=== PATIENT | male | born 1945 | race Caucasian/White ===

== ENCOUNTER 2019-11-09 09:02 | Observation (INO) ==
[2019-11-08 11:36] LABS: BASO# 0.11 X1000 (0.0-0.2); BASO% 1.5 % (0.0-0.8); EOS# 0.37 X1000 (0.0-0.7); EOS% 4.9 % (0.0-10.0); HEMATOCRIT 47.6 % (42.0-52.0); LYMPH# 1.82 X1000 (1.2-3.4); LYMPH% 24.2 % (20.5-51.1); MCH 29.1 PG (27-31); MCHC 33.6 g/dL (33-37); MCV 86.7 FL (81-99); MONO# 0.69 X1000 (0.11-0.59); MONO% 9.2 % (1.7-9.3); MPV 10.6 FL (7.4-10.4); NEUT# 4.53 X1000 (1.4-6.5); NEUT% 60.2 % (42.2-75.2); PLT 216 X1000 (130-400); RBC 5.49 XMIL (4.7-6.1); RDW 13.1 % (11.5-14.5); WBC 7.52 X1000 (4.8-10.8)
[2019-11-08 11:58] LABS: INR 1.02; PROTIME 13.5 Seconds (11.0-16.0)
[2019-11-08 11:59] LABS: PTT 32.7 Seconds (22.3-41.8)
[2019-11-08 12:24] LABS: AGAP 11; ALB/GLOB RATIO 1.3; ALBUMIN 4.1 g/dL (3.5-5.0); ALKALINE PHOSPHATASE 82 U/L (32-122); BUN 13 mg/dL (8-22); CALCIUM 9.6 mg/dL (8.8-10.2); CHLORIDE 101 mmol/L (98-107); COSMO 276; ESTIMATED GFR > 60; GLUCOSE 97 mg/dL (70-104); GOT 25 U/L (10-34); GPT 22 U/L (10-44); POTASSIUM 4.6 mmol/L (3.5-5.1); SODIUM 138 mmol/L (136-145); TCO2 26 mmol/L (25-35); TOTAL BILIRUBIN 0.44 mg/dL (0.20-1.00); TOTAL PROTEIN 7.3 g/dL (6.3-8.3)
[2019-11-09] MEDS ORDERED: NS 1,000 ML ONE (09:52)
[2019-11-09] MEDS ORDERED: HEPARIN 1000 UNITS/NS 2,000 UNIT/1,000 ML IV.SOLN ONE (12:43)
[2019-11-09] MEDS ORDERED: VERSED ONE (12:51)
[2019-11-09] MEDS ORDERED: DEMEROL ONE (12:51)
[2019-11-09] MEDS ORDERED: LOPRESSOR ONE (13:40)
[2019-11-09] MEDS ORDERED: TOPROL XL PO SCH (14:30)
[2019-11-09] MEDS ORDERED: ASPIRIN PO SCH (14:30)
--- NOTE | 2019-11-09 14:36 | CARDIAC CATH REPORT ---
DATE: 11/09/2019 PROCEDURES: 1. Left heart catheterization. 2. Selective bilateral coronary arteriography. 3. Left ventriculography. HISTORY: A 74-year-old male presenting with classical exertional angina pectoris to moderate effort and sometimes with little effort. He does have several risk factors for coronary heart disease. 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 Benefits, risks and complications were discussed. He understood and requested to proceed. 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 He received 1 mg of Versed and 25 mg of Demerol for sedation. The right antecubital fossa was prepped and draped in a sterile fashion, anesthetized with lidocaine 1%. A 5 Scottish sheath was inserted into the right brachial artery by following the modified Seldinger technique. Using a 5 Scottish Sones type 2 catheter, the left coronary artery was selectively opacified. Then the right coronary artery in several projections. Thereafter, the aortic valve negotiated and ventricular pressure was measured and left ventriculogram performed in 60 degree RENE projection and 30 degree DONAHUE projection by hand injection. At the completion of the case, he received 200 mcg of intraarterial nitroglycerin and the sheath was removed. Hemostasis was accomplished by hand compression. The patient tolerated the procedure well without complications. SUMMARY OF HEMODYNAMIC FINDINGS: Central aortic pressure is 148/86. LV pressure 172/11, post LV gram was 71/16, final central aortic pressure 181/72. SUMMARY OF THE ANGIOGRAPHIC FINDINGS: 1. Left main coronary artery: The vessel shows mild diffuse disease in the order of 10% to 15%. Left main divides into LAD and circumflex. 2. Left anterior descending coronary artery: The vessel shows diffuse coronary atherosclerosis proximally in the order of 20%, in the mid section in the order of 30% to 40%, more distally is very minimal. The LAD gives rise to diagonal vessels that appear to be free of any significant obstruction. They are small. 3. Circumflex: The circumflex coronary artery is nondominant. Gives rise to a high lateral branch that shows a proximal tubular plaque in the order of 50%. It is a small cardiac vessel. The main circumflex continues down gives to rise a bifurcating obtuse marginal vessel and a terminal small A-V branch. No critical lesion noted in the circumflex. 4. Right coronary artery: The right coronary artery is a dominant system. It does not give the conus branch nor the sinus sincere branch. It gives rise to an acute marginal vessel, proximally it shows diffuse disease in the order of 30% proximally and is very tortuous in its mid section. Then gives rise to a posterior descending branch which is normal and a posterolateral vessel. No critical stenosis is noted within the right coronary artery. LEFT VENTRICULOGRAM: Left ventricle shows hyperdynamic function, ejection fraction is 85% with no wall motion abnormality. No mitral regurgitation. SUMMARY: This study shows: 1. Diffuse coronary artery disease nonobstructive in the order of 30% to 40% in the mid LAD as well as in the right coronary artery. 2. Hyperdynamic left ventricle, ejection fraction of 85%. 3. Normal LVEDP. 4. Hypertension. 5. No mitral regurgitation, no aortic stenosis. RECOMMENDATIONS: We will treat the patient medically with statins, aspirin, and beta-blockers. Will follow him at the office. Prognosis is good at least for the short-term. cc: Bret Gee MD
[2019-11-09 16:57] VITALS: BP 116/65
[2019-11-09] MEDS ORDERED: CRESTOR PO SCH (21:00)
== END 2019-11-09 18:07 | disposition home or self-care (01) ==
LOC: OPS 09:02 → 2N 09:02
PROVIDERS: ADMIT Internal Medicine Cardiovascular Disease; ATTEND Internal Medicine Cardiovascular Disease